=== PATIENT | male | born 1940 | race Caucasian/White ===

== ENCOUNTER → 2017-10-08 | Outpatient (CLI) | payer MEDICARE, OTHER | END | disposition home or self-care (01) | LOC: YCFC.O 11:33 | DX: N40.1 Benign prostatic hyperplasia with lower urinary tract symptoms (principal); R35.0 Frequency of micturition ==

== ENCOUNTER → 2017-10-23 | Outpatient (CLI) | payer MEDICARE, OTHER | LOC: LAB.O 15:01 | DX: R73.09 Other abnormal glucose (principal) ==

== ENCOUNTER 2018-10-21 05:45 | Day surgery (SDC) | payer MEDICARE, OTHER ==
[2018-10-21] MEDS ORDERED: PROPOFOL 200 MG/20 ML VIAL IV ONE (07:00)
[2018-10-21] MEDS ORDERED: LACTATED RINGERS 1,000 ML ONE (08:13)
--- NOTE | 2018-10-21 13:40 | OP ---
DATE OF PROCEDURE: 10/21/18 PREPROCEDURE DIAGNOSIS: 1. Colorectal cancer screening. POSTPROCEDURE DIAGNOSIS: 1. Colonic polyp. 2. Suboptimal bowel preparation. 3. Large internal hemorrhoids. PROCEDURE: 1. Colonoscopy. SURGEON: Ender Chadwick MD COMPLICATIONS: No immediate complications. SEDATION: The patient was sedated via IV propofol by the Anesthesia Department. CONSENT: Prior to the procedure, risks, benefits and alternatives to the therapy were discussed with the patient. The risks included bleeding, infection, perforation and . The patient agreed to the procedure and signed a consent. PREPROCEDURE ANESTHESIA ASSESSMENT: An examination revealed no contraindication to sedation. Airway examination demonstrated a Mallampati class type 2, ASA grade assessment type 2. Throughout the procedure, the patient's blood pressure and additional vital signs were closely monitored. PROCEDURE: The patient was placed in the left lateral decubitus position and a rectal examination was performed. The rectal examination was within normal limits. The Olympus colonoscope was passed in the anus, rectum, traversing the transverse colon, ascending to the level of the ileocecal valve and the appendiceal orifice. The scope was retracted and the mucosa was visualized. The entirety of the exam was performed under direct visualization. Retroflexion was performed in the rectum. Preparation quality was suboptimal. The withdrawal time was greater than 6 minutes. The patient tolerated the procedure well. FINDINGS: 1. Semiliquid stool was found throughout the examination. Extensive lavage with sterile water was performed with only poor visualization of the colonic mucosa. 2. A large, sessile, flat polyp was found the ileocecal valve measuring up to 30 mm. No resection nor biopsy was attempted given bowel preparation and future attempt for endoscopic mucosa resection. 3. Large, non-bleeding internal hemorrhoids were found on retroflexion. RECOMMENDATION: 1. Return the patient home. 2. Resume previous diet. 3. Repeat colonoscopy for endoscopic mucosal resection. Advise two-day bowel preparation prior to this procedure. 4. The patient should be off antiplatelets for up to five days prior and oral anticoagulants three days prior to the procedure. 5. The findings were discussed with the patient and family members and all questions were answered. #[id number] [facility]
[2018-10-21 14:00] VITALS: O2SAT 97
[2018-10-21 14:01] VITALS: BP 135/60; TEMP 97
== END 2018-10-21 13:55 | disposition home or self-care (01) ==
LOC: AMB 05:45
PROVIDERS: ATTEND Internal Medicine Gastroenterology
DX: Z12.11 Encounter for screening for malignant neoplasm of colon (principal); D12.0 Benign neoplasm of cecum; K64.8 Other hemorrhoids; I10 Essential (primary) hypertension; E11.9 Type 2 diabetes mellitus without complications; K21.9 Gastro-esophageal reflux disease without esophagitis; Z79.82 Long term (current) use of aspirin; Z79.899 Other long term (current) drug therapy
CPT/HCPCS: 00812; 45378; J3490; J7120

== ENCOUNTER → 2018-11-02 | Outpatient (CLI) | payer MEDICARE, OTHER ==
--- NOTE | 2018-11-02 11:25 | RAD ---
EXAM DESCRIPTION: Chest,2 Views CLINICAL HISTORY: OTHER SPECIFIED SYMPTOMS AND SIGNS INVOLVING CIRC AND RESP COMPARISON: Previous study April 03, 2012 TECHNIQUE: PA/lateral FINDINGS: There is no acute appearing cardiac or pulmonary abnormality. Heart size is normal with normal pulmonary vascularity. No pleural effusion or pneumothorax. Lungs are clear with no consolidating infiltrate. Lateral view shows intact sternum and T-spine. IMPRESSION: No acute process is identified in the chest. Electronically signed by: Eddi Branch MD 11/02/2018 11:23 AM [facility]
== END ==
LOC: RAD 10:47
PROVIDERS: ATTEND Nurse Practitioner Family
DX: R09.89 Other specified symptoms and signs involving the circulatory and respiratory systems (principal)

== ENCOUNTER → 2019-01-24 | Outpatient (CLI) | payer MEDICARE, OTHER | LOC: SL 19:11 | PROVIDERS: ATTEND Family Medicine | DX: G47.30 Sleep apnea, unspecified (principal) ==

== ENCOUNTER 2019-03-08 15:51 | Emergency (ER) | payer MEDICARE, OTHER ==
[2019-03-08 16:08] VITALS: BP 179/97; TEMP 98.7; O2SAT 96
--- NOTE | 2019-03-08 16:15 | ED.PDOC ---
History of Present Illness - General Chief Complaint: Post Op Problems Stated Complaint: due to void Time Seen by Provider: 03/08/19 16:05 Source: patient Exam Limitations: no limitations - History of Present Illness Initial Comments: the patient is 78-year-old male presenting to emergency room secondary ty retention after general sedation for sinus surgery earlier today. He has had histories with BPH and urinary hesitancy in the past. No true retention however. No fever. He seems to be doing well after surgery otherwise. Timing/Duration: 4-6 hours Severity: moderate Improving Factors: nothing Worsening Factors: nothing Associated Symptoms: denies symptoms Allergies/Adverse Reactions: Allergies NO KNOWN ALLERGY Allergy (Verified 10/16/18 11:32) Home Medications: Ambulatory Orders Aspirin [Aspirin Adult Low Dose] 81 mg PO DAILY 10/16/18 Bisacodyl [Laxative] 25 mg PO PRN PRN 10/16/18 Calcium Carbonate-Cholecalcife [Calcium 500 +D3 500-600 mg-Unit] 1 tab PO DAILY 10/16/18 Diphenhydramine HCl 25 mg PO PRN PRN 10/16/18 Gabapentin 100 mg PO DAILY 10/16/18 Ropinirole Hydrochloride [Ropinirole HCl] 0.5 mg PO DAILY 10/16/18 Review of Systems - Review of Systems Constitutional: States: no symptoms reported EENTM: States: see HPI - sinus surgery and still has packing in place Respiratory: States: no symptoms reported Cardiology: States: no symptoms reported Gastrointestinal/Abdominal: States: no symptoms reported Genitourinary: States: see HPI Musculoskeletal: States: no symptoms reported Skin: States: no symptoms reported Neurological: States: no symptoms reported Endocrine: States: no symptoms reported All other Systems: No Change from Baseline Past Medical History (General) - Patient Medical History Hx Diabetes: No Hx MRSA: No Surgical History: other Family Medical History - Family History Father Family History: No Known Physical Exam - Physical Exam General Appearance: Alert, No apparent distress Eye Exam: bilateral normal Ears, Nose, Throat: hearing grossly normal, other - sinus packing is in place Neck: full range of motion, supple Respiratory: lungs clear, normal breath sounds, no respiratory distress, no accessory muscle use Cardiovascular/Chest: normal peripheral pulses, no edema, other - regular rate Peripheral Pulses: radial,right: 2+, radial,left: 2+, dorsalis pedis,right: 2+, dorsalis pedis,left: 2+ Gastrointestinal/Abdominal: non tender, soft Rectal Exam: deferred Extremity: non-tender, normal inspection, no pedal edema, normal capillary refill 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 He is going to have a Walker catheter with a leg bag replaced. He can remove it tomorrow morning. ER warnings were given for any recurrence. Departure - Departure Clinical Impression: Postoperative urinary retention Disposition: Discharge to Home or Self Care Condition: Fair Departure Forms: ED Discharge - Pt. Copy, Patient Portal Self Enrollment Diet: regular diet Activity: increase activity as tolerated Referrals: Ronda Weems [facility] [Primary Care Provider] - 1-2 Weeks Home Medications: Ambulatory Orders Aspirin [Aspirin Adult Low Dose] 81 mg PO DAILY 10/16/18 Bisacodyl [Laxative] 25 mg PO PRN PRN 10/16/18 Calcium Carbonate-Cholecalcife [Calcium 500 +D3 500-600 mg-Unit] 1 tab PO DAILY 10/16/18 Diphenhydramine HCl 25 mg PO PRN PRN 10/16/18 Gabapentin 100 mg PO DAILY 10/16/18 Ropinirole Hydrochloride [Ropinirole HCl] 0.5 mg PO DAILY 10/16/18 Additional Instructions: the patient is a 78-year-old male presenting to the emergency room with postprocedural urinary retention. He is going to have a Walker catheter with a leg bag replaced. He can remove it tomorrow morning. ER warnings were given for any recurrence.
== END 2019-03-08 16:41 | disposition home or self-care (01) ==
LOC: ER 15:51
DX: N99.89 Other postprocedural complications and disorders of genitourinary system (principal); R33.8 Other retention of urine; N40.1 Benign prostatic hyperplasia with lower urinary tract symptoms; Z79.82 Long term (current) use of aspirin; Z79.899 Other long term (current) drug therapy

== ENCOUNTER → 2019-05-26 | Outpatient (CLI) | payer MEDICARE, OTHER ==
--- NOTE | 2019-05-26 15:35 | CT ---
Procedure: CT LUNG SCREENING Exam Date: 05/26/2019. Ordering Provider: Scott Catalan Clinical Indication: HX OF TOBACCO USE tab This patient meets eligibility criteria for low-dose CT lung cancer screening. Comparison: Chest radiographs October 2018. Technique: Using a multislice scanner, sequential helical axial imaging was obtained in the thorax, 2.5 mm thickness, 2.5 mm separation, from the level of the thoracic inlet through the lung bases without IV contrast. A low dose protocol was utilized for BMI less than 30: BMI: 25.8. CTDI: 1.76 mGy. 120. kVp. 45 mA. DLP 67.9 mGy centimeters. 2D sagittal and coronal reconstructed images, 6.0 mm thickness, were obtained. This exam was performed according to our departmental dose optimization program which includes use of automated exposure control, adjustment of the mA and/or kV according to patient size and/or use of iterative reconstruction technique. Nodule measurements under 10 mm are given as mean value of 3 axes diameters. FINDINGS: Lungs and large airways: Pleural parenchymal scarring inferior lingula. Nonfocal subpleural medial groundglass density abutting the superior segment right upper lobe. No mass. No abnormal nodules. No focal infiltrates. Pleura and space: Bilateral foci of pleural thickening. Bilateral apical pleural thickening more on the right. No effusion or pneumothorax. Mediastinum and brayan: evaluation limited by low dose technique and lack of IV contrast. Negative. Heart and great vessels: Coronary artery calcifications. Atherosclerotic calcifications in the included brachiocephalic vessels and aortic arch Chest wall, lower neck, axillae: Evaluation also limited by same factors as described above. Unremarkable. Upper abdomen: Evaluation limited by low-dose technique. No free fluid or free air in the included peritoneal space. Included spleen and adrenal glands unremarkable. Gallbladder visualized. Osseous structures: Evaluation limited by low dose MIP technique. Bilateral glenohumeral joint joint arthrosis. Kyphoscoliosis upper thoracic spine. Spondylosis of the thoracic spine. Bilateral sternoclavicular joint arthrosis as well as sternomanubrial arthrosis. No lytic or blastic lesions. IMPRESSION: Minimal lung scarring. Senescent chest consistent for age. No abnormal nodules, no masses. No focal infiltrates. [facility] Best Practice recommendations:. Please see below for Lung RADS category and FOLLOW-UP.* *Lung RADS category Category 1 - No nodule or definitely benign nodules (probability of malignancy less than 1%). Follow-up: Continue annual screening with Low Dose Chest CT in 12 months. Electronically signed by: Herminio Santos MD 05/26/2019 3:33 PM CDT
--- NOTE | 2019-05-26 16:42 | RAD ---
EXAM DESCRIPTION: Knee,Right Complete: CR/DR/XR. CLINICAL HISTORY: 78 years MaleRT KNEE PAIN COMPARISON: CT lung screening on the same visit. TECHNIQUE: three views right knee AP lateral and patellar sunrise view. FINDINGS: Medial compartment [id number] with subchondral sclerosis and marginal spurs. Slight narrowing of the lateral patellofemoral compartment more than the medial with marginal spurs and trochlear spurs. Small suprapatellar effusion. Superior and inferior patellar spurs. Prepatellar soft tissue swelling. Posterior loose bodies seen on the lateral view. No fracture. 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 No fractures. Minimal joint effusion and soft tissue swelling. Multiple radiodense loose bodies in the posterior joint capsule seen on the lateral view. Electronically signed by: Herminio Santos MD 05/26/2019 4:40 PM CDT
== END ==
LOC: YCFC.O 09:48
PROVIDERS: ATTEND Family Medicine
DX: Z87.891 Personal history of nicotine dependence (principal); M17.11 Unilateral primary osteoarthritis, right knee; M79.9 Soft tissue disorder, unspecified; R94.6 Abnormal results of thyroid function studies; M25.861 Other specified joint disorders, right knee
CPT/HCPCS: 36415; 73562; 84439; 84443; 84481; G0297

== ENCOUNTER → 2019-06-11 | Outpatient (CLI) | payer MEDICARE, OTHER ==
--- NOTE | 2019-06-11 17:44 | RAD ---
EXAM DESCRIPTION: Knee,Right 1 or 2 Views CLINICAL HISTORY: KNEE PAIN COMPARISON: 26 May 2019 TECHNIQUE: AP view the right knee standing FINDINGS: Marked loss of medial joint space is observed. Apposition of bone is noted. Medial femoral and tibial osteophyte formation is observed. Mild loss of lateral joint space is seen. No fracturing is detected. IMPRESSION: Marked medial compartment arthritis is observed in the right knee. Electronically signed by: Gary Sanchez MD 06/11/2019 5:42 PM CDT
--- NOTE | 2019-06-11 17:45 | RAD ---
EXAM DESCRIPTION: Pelvis CLINICAL HISTORY: HIP PAIN COMPARISON: None. TECHNIQUE: AP pelvis FINDINGS: Mild loss of joint space is observed in the left hip. There is minimal acetabular osteophyte formation. The pelvis is intact. No fracturing is detected. Minimal right-sided acetabular osteophyte formation is observed. No soft tissue mass is seen. IMPRESSION: Mild degenerative changes are observed in the hips slightly more pronounced on the left. Electronically signed by: Gary Sanchez MD 06/11/2019 5:43 PM CDT
== END ==
LOC: RAD 08:13
PROVIDERS: ATTEND Orthopaedic Surgery
DX: M17.11 Unilateral primary osteoarthritis, right knee (principal); M16.0 Bilateral primary osteoarthritis of hip

== ENCOUNTER → 2019-09-21 | Outpatient (CLI) | payer MEDICARE, OTHER ==
--- NOTE | 2019-09-21 10:31 | RAD ---
EXAM DESCRIPTION: Chest,2 Views CLINICAL HISTORY: 78 years Male, PRE SURGERY EVALUATION COMPARISON: November 02, 2018. TECHNIQUE: PA and lateral radiographs of the chest were obtained. FINDINGS: Trachea is midline.The cardiomediastinal silhouette is normal in size. The pulmonary vasculature is within normal limits.The lungs are clear with no acute consolidation.No evidence of pleural effusions. Multilevel degenerative changes of the thoracic spine. IMPRESSION: 1. No acute cardiopulmonary process. Electronically signed by: Abdiel Sow MD 09/21/2019 10:29 AM [facility]
== END ==
LOC: LAB.O 09:25
PROVIDERS: ATTEND Family Medicine
DX: Z01.818 Encounter for other preprocedural examination (principal); Z86.39 Personal history of other endocrine, nutritional and metabolic disease

== ENCOUNTER → 2020-05-02 | Outpatient (CLI) | payer MEDICARE, OTHER | LOC: YCFC.O 10:07 | PROVIDERS: ATTEND Family Medicine | DX: R73.01 Impaired fasting glucose (principal); N40.1 Benign prostatic hyperplasia with lower urinary tract symptoms; R35.0 Frequency of micturition; R53.83 Other fatigue; Z79.899 Other long term (current) drug therapy; E78.2 Mixed hyperlipidemia; Z13.220 Encounter for screening for lipoid disorders ==

== ENCOUNTER → 2020-10-25 | Outpatient (CLI) | payer MEDICARE, OTHER ==
--- NOTE | 2020-10-25 18:16 | RAD ---
EXAM DESCRIPTION: Shoulder,Right 2 or More Views CLINICAL HISTORY: 79 years Male, SHOULDER PAIN COMPARISON: None. Findings: Four view(s)/radiograph(s) Moderate acromioclavicular osteoarthritis. Visualized chest is clear. Osteopenia. Narrowing of the subacromial space. Moderate to severe glenohumeral osteoarthritis with a high riding humeral head. No acute fracture or dislocation identified. IMPRESSION: Degenerative changes in the right shoulder. Electronically signed by: Jose Rausch MD 10/25/2020 6:15 PM [facility]
--- NOTE | 2020-10-25 18:17 | RAD ---
EXAM DESCRIPTION: Shoulder,Left 2 or More Views CLINICAL HISTORY: 79 years Male, SHOULDER PAIN COMPARISON: None. Findings: Four view(s)/radiograph(s) Visualized chest is clear. Osteopenia. Moderate acromioclavicular osteoarthritis. Narrowing of subacromial space. Severe glenohumeral osteoarthritis with a high riding head. No acute fracture or dislocation. IMPRESSION: Degenerative changes in the left shoulder. Electronically signed by: Jose Rausch MD 10/25/2020 6:15 PM [facility]
== END ==
LOC: YCFC.O 10:32
PROVIDERS: ATTEND Family Medicine
DX: M19.011 Primary osteoarthritis, right shoulder (principal); M19.012 Primary osteoarthritis, left shoulder; E78.5 Hyperlipidemia, unspecified